=== PATIENT | male | born 1985 | race Two or more races ===

== ENCOUNTER 2019-10-09 16:31 | Emergency (ER) | payer OTHER ==
[2019-10-09 16:41] VITALS: BMI 26.6
--- NOTE | 2019-10-09 18:27 | PDOC ---
History of Present Illness - General Chief Complaint: Cold Symptoms Stated Complaint: FEVER Time Seen by Provider: 10/09/19 17:21 History Source: Patient Exam Limitations: No Limitations - History of Present Illness Initial Comments: Pt is a 34 yo M, with no significant PMH, who is presenting with sore throat, fever, nausea, and dry cough x4 days. Pt states his and children have had similar symptoms, and his children are currently being treated with abx for strep throat. Pt has not taken any analgesics or fever reducers, but came to the ER today because he had fever (Tmax 103, axillary) and "feeling bad all over " today. Pt denies any headache, neck pain or stiffness, vision changes, syncope , chest pain, palpitations, SOB, vomiting, abdominal pain, urinary symptoms, diarrhea/constipation, or leg swelling. Allergies: NKDA PCP: Dr. Timmy Albert: Pt denies any cigarette, alcohol, or drug use. Pt denies any recent travel. Sick contacts as noted above. Surgical: no relevant history. Family: no relevant history. 10/09/19 18:50 10/09/19 19:46 Past History - Travel Traveled outside of the country in the last 30 days: No Close contact w/someone who was outside of country & ill: No - Past Medical History Allergies/Adverse Reactions: Allergies Allergy/AdvReac Type Severity Reaction Status Date / Time No Known Allergies Allergy Verified 10/09/19 16:37 Home Medications: Ambulatory Orders NK [No Known Home Medication] 10/09/19 CVA: No COPD: No - Psycho Social/Smoking Cessation Hx Smoking History: Never smoked Hx Alcohol Use: No Drug/Substance Use Hx: No Respiratory Specific PMHX - Complaint Specific PMHX Hx Airway Support: No Hx Intubation: No Hx Asthma: No Hx Smoking Exposure: No Hx Vaping: No Hx Allergic Rhinitis: No Hx Exposure to Respiratory Irritants: No Hx Bronchitis: No Hx Pneumonia: No Hx Pulmonary Embolus: No Hx TB (Tuberculosis): No Review of Systems - Review of Systems Able to Perform ROS?: Yes Is the patient limited Beninese proficient: No Constitutional: Yes: Chills, Fever, Loss of Appetite, Malaise, Weight Stable. No: Diaphoresis, Weakness HEENTM: Yes: Nose Congestion, Throat Pain. No: Recent change in vision, Ear Pain, Throat Swelling, Mouth Pain, Dental Problems, Difficulty Swallowing, Mouth Swelling Respiratory: Yes: Cough. No: Orthopnea, Shortness of Breath, Productive cough, Hemoptysis Cardiac (ROS): No: Chest Pain, Edema, Irregular Heart Rate, Lightheadedness, Palpitations, Syncope, Chest Tightness ABD/GI: Yes: Nausea, Poor Appetite, Poor Fluid Intake. No: Constipated, Diarrhea, Vomiting, Abdominal cramping : No: Burning, Dysuria, Frequency, Pain, Urgency Musculoskeletal: Yes: Muscle Pain. No: Back Pain, Joint Pain, Joint Swelling, Muscle Weakness Integumentary: No: Rash Neurological: No: Headache, Seizure, Weakness, Unsteady Gait, Dizziness Psychiatric: No: Sleep Pattern Change, Change in Appetite Endocrine: No: Increased Urine, Change in Weight Hematologic/Lymphatic: No: Anemia, Blood Clots, Easy Bleeding, Easy Bruising All Other Systems: Reviewed and Negative *Physical Exam - Vital Signs Last Vital Signs Temp Pulse Resp BP Pulse Ox 98.3 F 122 H 20 123/66 99 10/09/19 16:37 10/09/19 16:37 10/09/19 16:37 10/09/19 16:37 10/09/19 16:37 - Physical Exam Comments: Tachycardia (120s), pt afebrile. Pt in NAD, but appears ill. Normal body habitus. Pt alert and oriented x3. 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 No midline spinal tenderness, step-offs, or crepitus. No neck stiffness or tenderness elicited with neck flexion/extension. Head normocephalic, atraumatic. Eyes PERRLA, EOMI. Oropharynx with b/l tonsillar erythema and swelling, no exudate. No uvular deviation or abscesses noted. No LAD b/l. Pt tolerating secretions without difficulty. No nasal congestion. TMs without erythema or bulging, hearing intact. Clear heart sounds, S1/S2, no JVD, b/l pedal edema, or heart murmur. Clear lung sounds, no respiratory distress, wheezes, crackles, or accessory muscle use. No abdominal or CVA tenderness to palpation, no rebound, no guarding. Abdomen soft, non-distended, and with normoactive bowel sounds. Skin without jaundice or rash. 10/09/19 19:49 ED Treatment Course - LABORATORY CBC & Chemistry Diagram: 10/09/19 18:35 10/09/19 18:35 Medical Decision Making - Medical Decision Making Pt was seen at bedside, also will be seen by attending Dr. Cruz. Pt presenting with fever, sore throat, with recent sick contacts +for strep throat. Pt with decreased appetite, tachycardia. Will evaluate with basic labs, IVF hydration, strep and influenza swabs. Provided 1 L IV NS, 650 mg PO tylenol, and 4 mg IV zofran for improvement of hydration, discomfort, and nausea. Will continue to reassess pt and monitor for symptomatic improvement. 10/09/19 19:51 CBC: WBC 14 CMP: mild RENUKA -- pt receiving IVF and can tolerate PO intake in ED Strep test positive -- providing IM 1.2 penicillin Pt safe for d/c to home with PCP f/u. Strict return precautions provided with pt understanding. 10/09/19 19:52 Discharge - Discharge Information Problems reviewed: Yes Clinical Impression/Diagnosis: Strep throat Condition: Improved Disposition: HOME - Admission No - Follow up/Referral Referrals: Stacy Warner [Staff Physician] - - Patient Discharge Instructions Patient Printed Discharge Instructions: DI for Strep Throat Additional Instructions: You were seen in the ER today for sore throat. The results of your labs and imaging today showed a strep throat infection and dehydration, which we provided antibiotics and IV fluids. Please follow-up with your primary care doctor within 1-2 days to discuss your visit and make sure your symptoms have improved. Please return to the ER if you have any worsening pain, development of fevers or chills, loss of consciousness, inability to tolerate food or fluids , or any other concerns. You can take tylenol or motrin every 4-6 hours as needed for pain. - Post Discharge Activity
[2019-10-09] MEDS ORDERED: ACETAMINOPHEN 325 MG TABLET (FP) PO ONE (18:28)
[2019-10-09] MEDS ORDERED: SODIUM CHLORIDE 1,000 ML IV STA (18:29)
[2019-10-09] MEDS ORDERED: ONDANSETRON 4 MG/2 ML VIAL IVPUSH ONE (18:42)
[2019-10-09] MEDS ORDERED: ONDANSETRON 4 MG/2 ML VIAL ONE (18:44)
[2019-10-09] MEDS ORDERED: ACETAMINOPHEN 325 MG TABLET (FP) ONE (18:44)
[2019-10-09 18:59] LABS: BASO % 0.2 % (0-2.0); EOS % 0.1 % (0-4.5); HEMATOCRIT 45.1 % (35.4-49); HEMOGLOBIN 15.7 GM/dL (11.7-16.9); LYMPH % 6.7 % (8-40); MCH 30.8 pg (25.7-33.7); MCHC 34.9 g/dl (32.0-35.9); MEAN CELL VOLUME 88.3 fl (80-96); MEAN PLT VOLUME 7.9 fl (7.5-11.1); MONO % 5.8 % (3.8-10.2); NEUT % 87.2 % (42.8-82.8); PLATELET COUNT 284 K/MM3 (134-434); RBC 5.11 M/mm3 (4.00-5.60); WHITE BLOOD COUNT 14.9 K/mm3 (4.0-10.0)
[2019-10-09 19:30] LABS: ALBUMIN 4.2 g/dl (3.4-5.0); BLOOD UREA NITROGEN 18.7 mg/dL (7-18); CALCIUM 9.3 mg/dL (8.5-10.1); CREATININE 1.7 mg/dL (0.55-1.3); POTASSIUM 3.6 mmol/L (3.5-5.1); TOT PROT 7.9 g/dl (6.4-8.2)
[2019-10-09] MEDS ORDERED: PENICILLIN G BENZATHINE 1,200,000 UNIT/2 ML PFS IM ONE ×2 (19:30→20:02)
--- NOTE | 2019-10-09 19:35 | PDOC ---
Attending Attestation - Resident Resident Name: Rachel Baig - ED Attending Attestation I have performed the following: I have examined & evaluated the patient, The case was reviewed & discussed with the resident, I agree w/resident's findings & plan - HPI HPI: 10/09/19 22:23 Pt is a 34 yo M, with no significant PMH, who is presenting with sore throat, fever, nausea, and dry cough x4 days. Pt states his and children have had similar symptoms, and his children are currently being treated with abx for strep throat. Pt has fever 103F. No headache, neck pain or stiffness, vision changes, syncope, chest pain, palpitations, SOB, vomiting, abdominal pain, urinary symptoms, diarrhea/constipation, or leg swelling. Pt states that he has a coughy, no sputum; but some flecks of red today. No SOB however; nonsmoker and he has no difficulty breathing )2 sat 100% - Physicial Exam PE: 10/09/19 22:24 Agree with resident exam. Good air exchange; slightly less air exchange at the right basel; however, no egophany/fremitus. Abd soft NT ND No rashes on body. Pt has normal neuro exam Fever defervescing with antipyretics and NSS 1L in the ER. - Medical Decision Making 10/09/19 22:26 Pt will be treated with 1L NSS and IM LA bicillin 10/09/19 22:27 Strep positive; rest of labs normal. BUN/Cr minimal bump; however pt hydrated and he will be advised to drink fluids. Follow with PMD
[2019-10-09 20:29] VITALS: BP 109/60; PULSE 110; TEMP 99
== END 2019-10-09 20:30 | disposition home or self-care (01) ==
LOC: JER 16:31
PROC: 3E033GC Introduction of Other Therapeutic Substance into Peripheral Vein, Percutaneous Approach (ICD-10-PCS; principal; 2019-10-09)
PROC: 3E02329 Introduction of Other Anti-infective into Muscle, Percutaneous Approach (ICD-10-PCS; 2019-10-09)
DX: J02.0 Streptococcal pharyngitis (principal); B95.0 Streptococcus, group A, as the cause of diseases classified elsewhere
CPT/HCPCS: 36415; 80053; 85025; 87804; 87880; 99282-25; J7030

== ENCOUNTER 2022-09-27 16:23 | Emergency (ER) | payer OTHER ==
[2022-09-27 16:31] VITALS: BP 115/78; PULSE 98; RESP 18; TEMP 98; BMI 27.0
[2022-09-27] MEDS ORDERED: ACETAMINOPHEN 500 MG TABLET (FP) PO ONE (17:46)
[2022-09-27] MEDS ORDERED: ACETAMINOPHEN 500 MG TABLET (FP) ONE (18:40)
[2022-09-27] MEDS ORDERED: CYCLOBENZAPRINE HCL 10 MG TABLET (FP) PO ONE (18:57)
[2022-09-27] MEDS ORDERED: CYCLOBENZAPRINE HCL 10 MG TABLET (FP) ONE (18:58)
== END 2022-09-27 19:25 | disposition home or self-care (01) ==
LOC: JERFT 16:23
DX: M25.552 Pain in left hip (principal); M54.50 Low back pain, unspecified; V49.40XA Driver injured in collision with unspecified motor vehicles in traffic accident, initial encounter
CPT/HCPCS: 72100-TC-FY; 73502-TC-LT-FY; 99284-25

== ENCOUNTER 2023-11-21 10:24 | Emergency (ER) | payer OTHER ==
[2023-11-21 10:36] VITALS: BP 142/84; PULSE 87; RESP 18; TEMP 96.3; BMI 27.0
[2023-11-21] MEDS ORDERED: LIDOCAINE HCL 2% JELLY 10 ML CARTRIDGE PR ONE (11:06)
[2023-11-21] MEDS ORDERED: METHOCARBAMOL 500 MG TABLET PO ONE (11:07)
[2023-11-21] MEDS ORDERED: ACETAMINOPHEN 500 MG TABLET (FP) PO ONE (11:07)
[2023-11-21] MEDS ORDERED: LIDOCAINE 4% PATCH TP ONE ×2 (11:07→11:20)
[2023-11-21] MEDS ORDERED: predniSONE 20 MG TABLET (UD) PO SCH (11:15)
[2023-11-21] MEDS ORDERED: METHOCARBAMOL 500 MG TABLET ONE (11:19)
[2023-11-21] MEDS ORDERED: predniSONE 20 MG TABLET (UD) ONE (11:20)
[2023-11-21] MEDS ORDERED: predniSONE 10 MG TABLET (UD) ONE (11:20)
[2023-11-21] MEDS ORDERED: LIDOCAINE HCL 2% JELLY 6 ML TP ONE (11:20)
[2023-11-21] MEDS ORDERED: HYDROCORTISONE 100 MG/60 ML RECTAL ENEMA PR ONE (11:24)
[2023-11-21] MEDS ORDERED: HYDROCORTISONE 1% TOPICAL CREAM 30 GM TUBE TP ONE (11:26)
[2023-11-21] MEDS ORDERED: ACETAMINOPHEN 500 MG TABLET (FP) ONE (11:27)
[2023-11-21] MEDS ORDERED: predniSONE 40 MG, predniSONE 10 MG PO SCH (11:30)
[2023-11-21] MEDS ORDERED: LIDOCAINE PATCH REMOVAL MC ONE (22:00)
== END 2023-11-21 15:10 | disposition home or self-care (01) ==
LOC: JER 10:24
DX: M54.42 Lumbago with sciatica, left side (principal); K62.9 Disease of anus and rectum, unspecified; K64.9 Unspecified hemorrhoids; K59.09 Other constipation
CPT/HCPCS: 99283-25